=== PATIENT | female | born 1950 | race Caucasian/White ===

== ENCOUNTER 2016-12-22 11:51 | Emergency (ER) | payer BC ==
[~2016-12-22] VITALS: Ht 160 cm; Wt 77.3 kg
[~2016-12-22 11:51] MED LIST: ASCO1CAP3 PO; ASPI325T39 PO; CALCTAB5 PO; CHOLTAB3 PO; DIPH25CA37 PO; MELA1TAB3 PO; MULT-190 PO; MULT-506 PO
[2016-12-22 12:07] VITALS: TEMP 36.8; Ht 160 cm; Wt 77.3 kg
--- NOTE | 2016-12-22 13:06 | EMERGENCY ROOM VISIT NOTE ---
History First contact with patient: 12:08 Chief Complaint: EYE ASSESSMENT Stated Complaint: RT EYE SUDDEN SEVERE FLOATERS History of Present Illness The patient is a 66 year old female who presents to the Emergency Room with complaints of sudden onset of severe floaters in her right eye. The patient reports that 30 minutes ago, she was in her car driving when she pain to have an episode of black floaters in her right eye. Initially, it looked like a drop of ink swirling in water. She states that that resolved after a few minutes, but now looks like there is "soot" everywhere in her eye. She states that there are thousand of small black particles floating downward to her eye. She has never had episodes like this in the past. She had bilateral cataract surgeries in March and April of this past year. She attempted to call her local [employer], but was not able to contact them. She states that her vision is overall not decreased. She denies any eye pain. She denies any recent illnesses. Review of Systems A complete 10-point Review of Systems was discussed with the patient, with pertinent positives and negatives listed in the History of Present Illness. All remaining Review of Systems questions can be considered negative unless otherwise specified. Past Medical/Surgical History Medical Problems: (1) AAA (abdominal aortic aneurysm) (2) Fibroadenoma of left breast (3) Ovarian tumor Surgical Problems: (1) History of hysterectomy (2) Hx of cholecystectomy (3) Hx of tonsillectomy (4) S/P cholecystectomy (5) S/P GABY (total abdominal hysterectomy) (6) S/P tonsillectomy Family History Cancer Diabetes mellitus Heart disease Social History Smoking Status: Never Smoker Alcohol Use: occasionally Drug Use: none Marital Status: Housing Status: lives with family Occupation Status: employed Current/Historical Medications Scheduled Ascorbic Acid (Vitamin C), 500 MG PO DAILY Ergocalciferol (Vitamin D), 800 INTER.UNIT PO DAILY Melatonin-Pyridoxine (Melatonin), 3 MG PO HS Multivitamin (Multivitamin), 1 TAB PO DAILY Ocuvite Preservision (Ocuvite Preservision), 1 TAB PO DAILY Scheduled PRN Diphenhydramine Hcl (Benadryl), 25 MG PO HS PRN for PRN Allergies Coded Allergies: Codeine (Unverified Allergy, Severe, SHORTNESS OF BREATH, 12/22/16) Hydrocodone (Verified Allergy, Severe, SOB, 12/22/16) Physical Exam Vital Signs Date Time Temp Pulse Resp B/P Pulse Ox O2 Delivery O2 Flow Rate FiO2 12/22/16 13:27 88 20 144/85 100 12/22/16 12:07 36.8 68 18 145/91 97 Room Air Right Eye Acuity: 20/20 Corrected (affected) Left Eye Acuity: 20/25 Corrected Physical Exam VITALS: Vitals are noted on the nurse's note and reviewed by myself. Vital signs stable. GENERAL: This is a 66-year-old female, in no acute distress, nondiaphoretic, well-developed well-nourished. SKIN: Capillary reflex less than 2 seconds. EYES: Visual acuity 20/20 right eye, 20/25 left eye with correction. PERRLA, EOMs intact. No nystagmus. Slit lamp exam revealed no corneal foreign bodies. No abnormalities of the anterior chamber. Intraoptic pressures measured 16.5 mm injury in the left eye and 15.3 mmHg in the right eye. EARS: Tympanic membrane is pearly munguia bilaterally. MOUTH: Mucous members moist. NECK: Supple, no lymphadenopathy. NEURO: Patient was alert and oriented to person place and time. Medical Decision & Procedures Medical Decision Differential diagnosis includes retinal detachment, vitreous detachment, vitreous floaters, corneal foreign body, among others. The patient was evaluated as above. Slit-lamp exam was unremarkable. I spoke with the on-call [employer] architect, Dr. Reyes, who agreed to evaluate the patient in his office this afternoon at 2:30. This was discussed with the patient, who is agreeable to this treatment plan. She was given the office address and phone number. She was discharged to follow-up in the office as scheduled. Impression Primary Impression: Floaters in visual field Departure Information Dispostion Home / Self-Care Condition GOOD Referrals Geremias Gonzalez Jr,D.O. (PCP) Reza Reyes M.D. Patient Instructions [facility] Additional Instructions Dr. Reyes will see you in his office at 2:30 pm today. Call his office if you have any difficulty keeping that appointment or trouble finding the office. Return to the emergency department as needed. Problem Qualifiers Primary Impression: Floaters in visual field Laterality: right Qualified Codes: H43.391 - Other vitreous opacities, right eye
[2016-12-22 13:27] VITALS: BP 144/85; PULSE 88; O2SAT 100
== END 2016-12-22 13:27 | disposition home or self-care (01) ==
LOC: C.EDB 11:53 → C.EDD 13:27
DX: H43.391 Other vitreous opacities, right eye (principal); Z79.899 Other long term (current) drug therapy; Z83.3 Family history of diabetes mellitus; Z82.49 Family history of ischemic heart disease and other diseases of the circulatory system

== ENCOUNTER → 2017-10-02 | Outpatient (CLI) | payer BC ==
[~2017-10-02] MED LIST changes: -ASPI325T39 PO; -CALCTAB5 PO; +GABA-113 PO
[2017-10-02 16:39] LABS: BLOOD UREA NITROGEN 11 mg/dl (7-18); CREATININE 0.79 mg/dl (0.60-1.20)
--- NOTE | 2017-10-06 10:11 | CODING QUERY NO DIAGNOSIS ---
TREATMENT RENDERED WITHOUT A DIAGNOSIS To promote full compliance with coding requirements relating to patient care, physician participation is requested in all cases of chilling hood operator uncertainty. Please assist us with providing a diagnosis/symptom for the test(s) below: A diagnosis/symptom was not documented on your Order. A valid diagnosis/symptom is required to bill all insurances. Please remember that we are unable to code a diagnosis of rule out, probable, possible, questionable, or suspected. Tests that require a diagnosis: DOS 10/02 * Alexandru BLOUNT DIAGNOSIS: Provider Signature: Date: Thank you Earline Ervin Health Information Management Once completed, please kindly fax back to [phone] For questions please call [phone]
== END | disposition home or self-care (01) ==
LOC: C.LAB 16:00
PROVIDERS: ATTEND Anesthesiology
DX: Z01.812 Encounter for preprocedural laboratory examination (principal); M54.16 Radiculopathy, lumbar region

== ENCOUNTER → 2017-10-02 | Outpatient (CLI) | payer BC ==
[~2017-10-02] MED LIST changes: +CALCTAB65 PO; +GABA-112 PO; +GADAVIST IV PRN
--- NOTE | 2017-10-02 22:32 | DIAGNOSTIC IMAGING REPORT ---
MRI OF LUMBAR SPINE COMBO CLINICAL HISTORY: Lumbago. COMPARISON STUDY: Radiographs of the lumbar spine dated 10/01/[address] dated 04/22/2014. TECHNIQUE: MRI of the lumbar spine is performed utilizing various T1 and T2-weighted sequences in the axial and sagittal planes. Contrast-enhanced sequences were acquired following the IV administration of 7 mL of Gadavist. FINDINGS: Lumbar spine: Vertebral body height and alignment are maintained throughout the lumbar spine. There is straightening of the lumbar lordosis. The transverse and spinous processes are intact as imaged. There is no evidence of spondylolysis. No destructive bony lesion is seen. Tiny anterior osteophytes are seen in the mid to lower lumbar region. Chronic degenerative endplate change and sclerosis is seen at L5-S1. There is mild degenerative endplate edema at this level. Mild chronic degenerative endplate change is also seen at L2-L3 and L3-L4. Intervertebral discs: There is degenerative disc desiccation seen throughout the lumbar spine. Advanced loss of height is noted at L5-S1. Only mild loss of height is seen at the remaining lumbar levels. Spinal cord: The visualized spinal cord is normal in morphology and signal intensity. The conus medullaris terminates at the T12-L1 interspace. No abnormal enhancement is seen on the postcontrast images. The nerve roots of the cauda equina are normal in morphology. T12-L1: There is a small posterior disc bulge with annular fissure. There is no significant acquired compromise of the central canal. This is only seen on the sagittal images. L1-L2: There is a small posterior disc extrusion with annular fissure. The central canal and neural foramina are widely patent. L2-L3: There is minimal disc bulge. The central canal and neural foramina are patent. L3-L4: There is minimal disc bulge. The central canal and neural foramina are patent. L4-L5: There is a 1.4 cm structure identified within the anterior right aspect of the central canal, best seen on axial image #17 and sagittal image #6. This demonstrates intermediate signal on T2 and low signal on T1 with peripheral enhancement, and likely representing a sequential disc fragment. This is located posterior to the L4 vertebral body and impinges on the exiting right L4 nerve root as well as the transiting right L5 nerve root. The central canal is clear at this level. The left neural foramen is clear. L5-S1: There is a small posterior disc bulge. There is no significant acquired compromise the central canal and neural foraminal stenosis. Sacrum: The visualized sacrum is normal in morphology and signal intensity. Soft tissues: There is nonspecific edema and patchy abnormal enhancement identified involving the facet joints bilaterally, greatest at L4-L5 and L5-S1. Milder abnormal enhancement is seen within the facet joints at L2-L3 and L3-L4. Nonspecific abnormal enhancement is also seen on the interspinous region at L4-L5 and L5-S1. An infrarenal abdominal aortic aneurysm measures up to 3.7 cm. IMPRESSION: 1. There is a lesion within the anterior central canal on the right at L4-L5, predominantly located posterior to the L4 vertebral body. This impinges on the exiting right L4 and the transiting right L5 nerve roots at this level. This likely represents a sequestered disc fragment, or much less likely could represent a nerve sheath tumor. 2. Only minimal degenerative change is seen at additional levels. 3. There is nonspecific edema and abnormal enhancement identified involving the facet joints, greatest at L4-L5 and L5-S1. This likely represents multilevel facet arthropathy. Clinical correlation will be essential. Dictated: 10/02/2017 9:01 PM Transcribed: 10/02/2017 10:32 PM [email or web address] Electronically signed by: Scooby Hickman M.D. 10/02/2017 11:01 PM Dictated Date/Time: 10/02/2017 9:01 PM
== END | disposition home or self-care (01) ==
LOC: C.MRI 19:28
PROVIDERS: ATTEND Anesthesiology
DX: M54.16 Radiculopathy, lumbar region (principal); R93.7 Abnormal findings on diagnostic imaging of other parts of musculoskeletal system

== ENCOUNTER → 2017-10-23 | Outpatient (CLI) | payer BC ==
[~2017-10-23] MED LIST changes: -GADAVIST IV PRN
--- NOTE | 2017-10-24 07:55 | MAMMOGRAPHY REPORT ---
BILATERAL DIGITAL SCREENING MAMMOGRAM TOMOSYNTHESIS WITH CAD: 10/23/2017 CLINICAL HISTORY: Routine screening. TECHNIQUE: Breast tomosynthesis in addition to standard 2D mammography was performed. Current study was also evaluated with a Computer Aided Detection (CAD) system. COMPARISON: Comparison is made to exams dated: 08/23/2015 mammogram, 08/23/2015 ultrasound, 08/12/2015 mammogram, 12/03/2012 mammogram, 07/26/2010 mammogram - [facility], and 06/29/2008. BREAST COMPOSITION: There are scattered areas of fibroglandular density in both breasts. FINDINGS: The parenchymal pattern is similar to prior mammograms. There are a few benign-appearing punctate microcalcifications. A linear scar marker overlies the superior left breast. No developing mass, architectural distortion or cluster of suspicious microcalcifications is seen in either breast . IMPRESSION: ACR BI-RADS CATEGORY 2: BENIGN There is no mammographic evidence of malignancy. A 1 year screening mammogram is recommended. The pa tient will receive written notification of the results. Approximately 10% of breast cancers are not detected with mammography. A negative mammographic report should not delay biopsy if a clinically suggestive mass is present. Ruby Briceno M.D. ay/:10/23/2017 16:34:30 E M Assembler: Clyde PASCUAL)(M), [facility] letter sent: Normal 1/2 BI-RADS Code: ACR BI-RADS Category 2: Benign
== END | disposition home or self-care (01) ==
LOC: C.MAMM 14:40
PROVIDERS: ATTEND Obstetrics & Gynecology
DX: Z12.31 Encounter for screening mammogram for malignant neoplasm of breast (principal)

== ENCOUNTER → 2017-10-25 | Outpatient (CLI) | payer BC ==
--- NOTE | 2017-10-25 17:26 | ECHOCARDIOGRAM REPORT ---
*NOTICE TO RECEIVING DEMOCRAT AGENCY This information is strictly Confidential and protected under [place] law. [place] law prohibits you from making any further disclosure of this information unless further disclosure is expressly permitted by the written consent of the person to whom it pertains or is authorized by law. A general authorization for the release of medical or other information is not sufficient for this purpose. Hospital accepts no responsibility if the information is made available to any other person, INCLUDING THE PATIENT. Interpretation Summary * Name: DENIZ HARVEY Study Date: 10/25/2017 02:42 PM BP: 118/62 mmHg * Patient Location: [facility] HR: 58 * : 1950 (M/d/yyyy) Gender: Female Height: 62 in * Age: 67 yrs Ethnicity: CA Weight: 160 lb * Ordering Physician: Geremias Gonzalez * Referring Physician: Geremias Gonzalez D.O. * Performed By: Eunice Fajardo RDCS * * Reason For Study: Chest Pain, AAA * BSA: 1.7 m2 * -- Conclusions -- * Left ventricular systolic function is normal. * Grade I diastolic dysfunction, (abnormal relaxation pattern). * Mild aortic regurgitation. * Right ventricular systolic pressure is elevated at 30-40mmHg. Procedure Details * A complete two-dimensional transthoracic echocardiogram was performed (2D, M-mode, Doppler and color flow Doppler). Left Ventricle * The left ventricle is normal in size. * There is normal left ventricular wall thickness. * Ejection Fraction = 60-65%. * Left ventricular systolic function is normal. * Grade I diastolic dysfunction, (abnormal relaxation pattern). * The left ventricular wall motion is normal. Right Ventricle * The right ventricle is normal in size and function. * The right ventricular systolic function is normal as assessed by tricuspid annular plane systolic excursion (TAPSE) (normal >1.5 cm). Atria * The left atrial size is normal. * Right atrial size is normal. Mitral Valve * The mitral valve anatomy is normal. * There is trace mitral regurgitation. Tricuspid Valve * The tricuspid valve is not well visualized, but is grossly normal. * There is trace tricuspid regurgitation. * Right ventricular systolic pressure is elevated at 30-40mmHg. Aortic Valve * The aortic valve is normal in structure and function. * The aortic valve is trileaflet. * No hemodynamically significant valvular aortic stenosis. * Mild aortic regurgitation. Great Vessels * The aortic root is normal size. Pericardium/Pleural * There is no pericardial effusion. Great Vessels * Normal inferior vena cava diameter and respiratory variation suggests normal central venous pressure. MMode 2D Measurements and Calculations IVSd 0.94 cm IVSs 1.4 cm LVIDd 4.6 cm LVIDs 3.2 cm LVPWd 1.0 cm LVPWs 1.4 cm IVS/LVPW 0.92 FS 30.6 % EDV(Teich) 98.8 ml ESV(Teich) 41.3 ml EF(Teich) 58.2 % EDV(cubed) 99.2 ml ESV(cubed) 33.1 ml EF(cubed) 66.6 % % IVS thick 46.4 % % LVPW thick 31.6 % LV mass(C)d 157.4 grams LV mass(C)dI 90.6 grams/m\S\2 LV mass(C)s 148.1 grams LV mass(C)sI 85.2 grams/m\S\2 SV(Teich) 57.5 ml SI(Teich) 33.1 ml/m\S\2 SV(cubed) 66.1 ml SI(cubed) 38.0 ml/m\S\2 Ao root diam 3.5 cm Ao root area 9.6 cm\S\2 ACS 1.8 cm LA dimension 3.7 cm asc Aorta Diam 3.9 cm LA/Ao 1.1 LVAd ap4 28.9 cm\S\2 LVLd ap4 7.6 cm EDV(MOD-sp4) 91.6 ml EDV(sp4-el) 92.7 ml LVAs ap4 15.0 cm\S\2 LVLs ap4 6.2 cm ESV(MOD-sp4) 34.5 ml ESV(sp4-el) 30.9 ml EF(MOD-sp4) 62.3 % EF(sp4-el) 66.6 % LVAd ap2 23.7 cm\S\2 LVLd ap2 7.3 cm EDV(MOD-sp2) 63.0 ml EDV(sp2-el) 65.1 ml LVAs ap2 13.0 cm\S\2 LVLs ap2 6.1 cm ESV(MOD-sp2) 23.4 ml ESV(sp2-el) 23.3 ml EF(MOD-sp2) 62.8 % EF(sp2-el) 64.2 % LVLd %diff -4.17 % EDV(MOD-bp) 76.6 ml LVLs %diff -0.66 % ESV(MOD-bp) 28.3 ml EF(MOD-bp) 63.1 % SV(MOD-sp4) 57.1 ml SI(MOD-sp4) 32.9 ml/m\S\2 SV(MOD-sp2) 39.6 ml SI(MOD-sp2) 22.8 ml/m\S\2 SV(MOD-bp) 48.3 ml SI(MOD-bp) 27.8 ml/m\S\2 SV(sp4-el) 61.7 ml SI(sp4-el) 35.5 ml/m\S\2 SV(sp2-el) 41.8 ml SI(sp2-el) 24.0 ml/m\S\2 Doppler Measurements and Calculations MV E max lisa 62.0 cm/sec MV A max lisa 65.8 cm/sec MV E/A 0.94 MV P1/2t max lisa 67.4 cm/sec MV P1/2t 62.0 msec MVA(P1/2t) 3.5 cm\S\2 MV dec slope 318.3 cm/sec\S\2 MV dec time 0.26 sec Ao V2 max 151.8 cm/sec Ao max PG 9.3 mmHg Ao max PG (full) 2.0 mmHg AI max lisa 413.5 cm/sec AI max PG 68.4 mmHg AI dec slope 180.3 cm/sec\S\2 AI P1/2t 671.8 msec LV V1 max PG 7.2 mmHg LV V1 max 134.4 cm/sec PA V2 max 71.2 cm/sec PA max PG 2.0 mmHg TR max lisa 189.5 cm/sec
== END | disposition home or self-care (01) ==
LOC: C.CPL 14:30
DX: I71.4 Abdominal aortic aneurysm, without rupture (principal); R07.89 Other chest pain